=== PATIENT | female | born 1970 | race Caucasian/White ===

== ENCOUNTER 2018-01-03 22:36 | Emergency (ER) | payer OTHER ==
[~2018-01-03] VITALS: Ht 157.5 cm; Wt 50.0 kg
[2018-01-04] MEDS ORDERED: HYDR25TA PO (00:17)
[2018-01-04] MEDS ORDERED: LISI-662 PO (00:17)
[2018-01-04] MEDS ORDERED: LORA1TAB3 PO (00:22)
[2018-01-04] MEDS ORDERED: SUCR1ORA5 PO (00:22)
[2018-01-04] MEDS ORDERED: FOLI1 PO (00:22)
[2018-01-04] MEDS ORDERED: OMEP20 PO (00:22)
[2018-01-04] MEDS ORDERED: SERT50TA12 PO (00:22)
[2018-01-04] MEDS ORDERED: HYDR-305 PO (00:22)
[2018-01-04] MEDS ORDERED: GABA-531 PO (00:22)
[2018-01-04] MEDS ORDERED: BACL10TA PO (00:22)
[2018-01-04] MEDS ORDERED: FERR-89 PO (00:22)
[2018-01-04] MEDS ORDERED: CYCLOBENZAPRINE HCL 10 MG TABLET PO ONE (01:30)
[2018-01-04] MEDS ORDERED: LIDOCAINE HCL 5% TRANSDERMAL PATCH TD ONE (01:30)
[2018-01-04 02:00] VITALS: BP 140/100
== END 2018-01-04 02:15 | disposition home or self-care (01) ==
LOC: EMS 22:38
DX: M54.2 Cervicalgia (principal); M79.1 Myalgia; I10 Essential (primary) hypertension; M25.511 Pain in right shoulder; M25.512 Pain in left shoulder; F17.210 Nicotine dependence, cigarettes, uncomplicated
CPT/HCPCS: 99283